=== PATIENT | male | born 1995 ===

== ENCOUNTER 2020-01-27 08:28 | Emergency (ER) | payer MEDICAID ==
--- NOTE | 2020-01-27 08:37 | EDM.PDOCBH ---
ED HPI GENERAL MEDICAL PROBLEM - General Chief Complaint: Drug or Alcohol Abuse Stated Complaint: LAW ENFORCEMENT Time Seen by Provider: 01/27/20 08:32 Source of Information: Reports: Patient, Police, RN, RN Notes Reviewed History Limitations: Reports: No Limitations - History of Present Illness INITIAL COMMENTS - FREE TEXT/NARRATIVE: Pt brought to police with report that pt was found intoxicated in public this morning, and needs a medical screening exam before being placed in detox. Pt reports he "got into some meth last night" and he usually never does meth, and it's making him feel paranoid. Pt denies illness, injury, or any COVID exposure. Pt admits to recent heavy alcohol use, he will not quantify how much or exactly for how long. He denies any other complaints. Onset: Unknown/Unsure Duration: Constant Location: Reports: Generalized Severity: Severe Improves with: Reports: None Worsens with: Reports: None Associated Symptoms: Reports: No Other Symptoms - Related Data Allergies Allergy/AdvReac Type Severity Reaction Status Date / Time No Known Allergies Allergy Verified 01/27/20 08:38 Home Meds: Home Meds . [No Known Home Meds] 01/27/20 [History] Past Medical History Psychiatric History: Reports: Addiction, Anxiety, Depression Social & Family History - Family History Family Medical History: Unobtainable (Pt is unsure) - Tobacco Use Smoking Status *Q: Current Every Day Smoker Tobacco Use Within Last Twelve Months: Cigarettes - Caffeine Use Caffeine Use: Reports: Energy Drinks, Soda - Alcohol Use Alcohol Use History: Yes Alcohol Use Frequency: Binges, Patient Refused to Answer - Recreational Drug Use Recreational Drug Use: Yes Recreational Drug Use Frequency: Patient Refuses To Answer - Living Situation & Occupation Living situation: Reports: with Family Occupation: Unemployed ED ROS GENERAL - Review of Systems Review Of Systems: Comprehensive ROS is negative, except as noted in HPI. ED EXAM, BEHAVIORAL HEALTH - Physical Exam Exam: See Below Exam Limited By: No Limitations General Appearance: Alert, WD/WN, No Apparent Distress Eye Exam: Bilateral Eye: Normal Inspection Nose: Normal Inspection, Normal Mucosa, No Blood Throat/Mouth: Normal Inspection, Normal Lips, Normal Voice, No Airway Compromise Head: Atraumatic, Normocephalic Neck: Normal Inspection, Supple, Non-Tender, Full Range of Motion Respiratory/Chest: No Respiratory Distress, Lungs Clear, Normal Breath Sounds, No Accessory Muscle Use, Chest Non-Tender Cardiovascular: Normal Peripheral Pulses, Regular Rate, Rhythm, No Edema, No Gallop, No JVD, No Murmur, No Rub GI/Abdominal: Normal Bowel Sounds, Soft, Non-Tender, No Organomegaly, No Distention, No Abnormal Bruit, No Mass Back Exam: Normal Inspection Extremities: Normal Inspection Neurological: Alert, Normal Mood/Affect, CN II-XII Intact, Normal Cognition, Normal Gait, No Motor/Sensory Deficits, Oriented x 3 Psychiatric: Normal Affect, Normal Mood Skin Exam: Warm, Dry, Intact, Normal color, No rash COURSE, BEHAVIORAL HEALTH COMP - Course Vital Signs: Last Vital Signs Temp 97.8 F 01/27/20 08:36 Pulse 120 H 01/27/20 08:36 Resp 18 01/27/20 08:36 BP 150/108 H 01/27/20 08:36 Pulse Ox 100 01/27/20 08:36 Orders, Labs, Meds: Laboratory Tests 01/27/20 01/27/20 Range/Units 08:29 08:41 Urine Opiates Screen Negative (NEGATIVE) Ur Oxycodone Screen Negative (NEGATIVE) Urine Methadone Screen Negative (NEGATIVE) Ur Barbiturates Screen Negative (NEGATIVE) U Tricyclic Antidepress Negative (NEGATIVE) Ur Phencyclidine Scrn Negative (NEGATIVE) Ur Amphetamine Screen Negative (NEGATIVE) U Methamphetamines Scrn Positive H (NEGATIVE) Urine MDMA Screen Negative (NEGATIVE) U Benzodiazepines Scrn Negative (NEGATIVE) Urine Cocaine Screen Negative (NEGATIVE) U Marijuana (THC) Screen Negative (NEGATIVE) Ethyl Alcohol 379 (0) mg/dL Medications Discontinued Medications Generic Name Dose Route Start Last Admin Trade Name Judit PRN Reason Stop Dose Admin Ondansetron HCl 4 mg 01/27/20 08:42 01/27/20 08:47 Zofran Odt PO 01/27/20 08:43 4 mg ONETIME ONE Administration Medical Clearance: 01/27/20 09:09 Pt intoxicated, but is polite, cooperative, and ambulates steadily without assistance. Pt is not suicidal or homicidal. No hallucinations. I find no medical contraindication to pt being admitted to a detox facility at this time. Departure - Departure Time of Disposition: 09:11 Disposition: Home, Self-Care 01 Condition: Good Clinical Impression: Alcohol abuse, Methamphetamine abuse Alcohol intoxication Qualifiers: Complication of substance-induced condition: uncomplicated Qualified Code(s): F10.920 - Alcohol use, unspecified with intoxication, uncomplicated - Discharge Information *PRESCRIPTION DRUG MONITORING PROGRAM REVIEWED*: No *COPY OF PRESCRIPTION DRUG MONITORING REPORT IN PATIENT MARIELA: No Instructions: Alcohol Intoxication, [id number], Alcohol Use Disorder, Stimulant Use Disorder-Methamphetamines Forms: ED Department Discharge Additional Instructions: Abstain from drug and alcohol use. Go to a detox or treatment program if you are unable to quit on your own. Sepsis Event Note (ED) - Focused Exam Vital Signs: Vital Signs Temp Pulse Resp BP Pulse Ox 01/27/20 08:36 97.8 F 120 H 18 150/108 H 100
[2020-01-27] MEDS ORDERED: Ondansetron 4 MG Tab.DIS PO ONE (08:42)
== END 2020-01-27 09:30 | disposition home or self-care (01) ==
LOC: DL.ED 08:28
DX: F10.120 Alcohol abuse with intoxication, uncomplicated (principal); F15.10 Other stimulant abuse, uncomplicated; F17.210 Nicotine dependence, cigarettes, uncomplicated; Y90.8 Blood alcohol level of 240 mg/100 ml or more
CPT/HCPCS: 36415; 80305; 80307; 99284; A9270